=== PATIENT | female | born 1990 | race American Indian/Alaskan Native ===

== ENCOUNTER 2020-11-12 08:55 | Emergency (ER) | payer SELFPAY ==
[2020-11-12 09:21] VITALS: BP 100/63
[2020-11-12 10:11] LABS: Bilirubin,Urine NEG (Negative); Blood,Urine NEG (Negative); Color,Urine Yellow (Yellow); Mucus,Urine FEW /HPF; Protein,Urine <15 mg/dL mg/dL (Negative); RBC,Urine < 1.0 /HPF (0.0-6.0); Urobilinogen,Urine < 2.0 mg/dL (<2.0); WBC,Urine < 1.0 /HPF (0.0-6.0)
[2020-11-12 10:34] LABS: Eosinophils # (Auto) 0.1 K/mm3 (0.0-0.4); Eosinophils % (Auto) 1.1 % (0.0-4.3); Hematocrit 40.5 % (30.3-42.9); Hemoglobin 13.2 gm/dl (10.1-14.3); Lymphocytes # (Auto) 1.7 K/mm3 (1.2-5.4); Lymphocytes % (Auto) 32.9 % (13.4-35.0); Mean Corpuscular HGB Conc 33 % (30-34); Mean Corpuscular Volume 89 fl (79-97); Monocytes # (Auto) 0.3 K/mm3 (0.0-0.8); Monocytes % (Auto) 6.5 % (0.0-7.3); Platelet Count 257 K/mm3 (140-440); Red Blood Count 4.56 M/mm3 (3.65-5.03); Red Cell Distribution Width 15.4 % (13.2-15.2)
--- NOTE | 2020-11-12 10:55 | Emergency Department Report ---
ED HPI - General Chief complaint: Vaginal Bleeding Stated complaint: PREG 4WKS/BLEEDING/PAIN Time Seen by Provider: 11/12/20 10:50 Source: patient Mode of arrival: Ambulatory Limitations: No Limitations - History of Present Illness Initial comments: Patient is a 30-year-old female presents emergency room with complaints of lower abdominal cramping that began earlier this morning. She states that she did have an episode of heavy bleeding but has since significantly improved. She states that she is approximately 4 weeks . She states that her last menstrual cycle was 09/24/2020. She has not had this confirmed and states that she took a home test which was positive. She has not seen [facility]. She denies any fever, nausea, vomiting, diarrhea, urinary symptoms, abnormal vaginal discharge. No past medical history. Allergy to penicillin. /P: 2/A: 2 - Related Data Home Medications Medication Instructions Recorded Confirmed Last Taken Mv-Mn/Iron/FA/Herbal/Digestive 1 each PO QDAY 08/27/13 09/07/13 09/06/13 08:00 [ One Tablet] 1 Previous Rx's Medication Instructions Recorded Last Taken Type Prednisone [predniSONE 5 mg (6-Day 5 mg PO .TAPER #1 tab.ds.pk 08/13/15 Unknown Rx Pack, 21 Tabs)] hydrOXYzine HCL [Atarax] 10 mg PO Q6HR #30 tablet 08/13/15 Unknown Rx Allergies Allergy/AdvReac Type Severity Reaction Status Date / Time Penicillins Allergy Swelling Verified 11/12/20 09:17 ED Review of Systems ROS: Stated complaint: PREG 4WKS/BLEEDING/PAIN Other details as noted in HPI Comment: All other systems reviewed and negative ED Past Medical Hx - Past Medical History Previous Medical History?: No Hx Hypertension: No Hx Congestive Heart Failure: No Hx Diabetes: No Hx Deep Vein Thrombosis: No Hx Renal Disease: No Hx Sickle Cell Disease: No Hx Seizures: No Hx Asthma: No Hx COPD: No Hx HIV: No - Surgical History Past Surgical History?: No - Social History Smoking Status: Never Smoker Substance Use Type: None - Medications Home Medications: Home Medications Medication Instructions Recorded Confirmed Last Taken Type Mv-Mn/Iron/FA/Herbal/Digestive 1 each PO QDAY 08/27/13 09/07/13 09/06/13 08:00 History [ One Tablet] 1 Prednisone [predniSONE 5 mg (6-Day 5 mg PO .TAPER #1 tab.ds.pk 08/13/15 Unknown Rx Pack, 21 Tabs)] hydrOXYzine HCL [Atarax] 10 mg PO Q6HR #30 tablet 08/13/15 Unknown Rx ED Physical Exam - General Limitations: No Limitations General appearance: alert, in no apparent distress - Head Head exam: Present: atraumatic, normocephalic - Eye Eye exam: Present: normal appearance - ENT ENT exam: Present: mucous membranes moist - Respiratory Respiratory exam: Present: normal lung sounds bilaterally. Absent: respiratory distress, wheezes, rales, rhonchi, stridor, chest wall tenderness, accessory muscle use, decreased breath sounds, prolonged expiratory - Cardiovascular Cardiovascular Exam: Present: regular rate, normal rhythm, normal heart sounds. Absent: systolic murmur, diastolic murmur, rubs, gallop - GI/Abdominal GI/Abdominal exam: Present: soft, normal bowel sounds. Absent: distended, tenderness, guarding, rebound, rigid - Neurological Exam Neurological exam: Present: alert, oriented X3 - Psychiatric Psychiatric exam: Present: normal affect, normal mood - Skin Skin exam: Present: warm, dry, intact ED Course Vital Signs 11/12/20 09:21 Temperature 99.2 F Pulse Rate 74 Respiratory 18 Rate Blood Pressure 100/63 O2 Sat by Pulse 100 Oximetry ED Medical Decision Making - Lab Data Result diagrams: 11/12/20 09:38 Lab Results 11/12/20 11/12/20 11/12/20 Range/Units 09:38 09:38 09:38 WBC 5.3 (4.5-11.0) K/mm3 RBC 4.56 (3.65-5.03) M/mm3 Hgb 13.2 (10.1-14.3) gm/dl Hct 40.5 (30.3-42.9) % MCV 89 (79-97) fl MCH 29 (28-32) pg MCHC 33 (30-34) % RDW 15.4 H (13.2-15.2) % Plt Count 257 (140-440) K/mm3 Lymph % (Auto) 32.9 (13.4-35.0) % Gilchrist % (Auto) 6.5 (0.0-7.3) % Eos % (Auto) 1.1 (0.0-4.3) % Baso % (Auto) Carpet [employer]neyman Lymph # (Auto) 1.7 (1.2-5.4) K/mm3 Gilchrist # (Auto) 0.3 (0.0-0.8) K/mm3 Eos # (Auto) 0.1 (0.0-0.4) K/mm3 Baso # (Auto) 0.0 (0.0-0.1) K/mm3 Seg Neutrophils % 58.7 (40.0-70.0) % Seg Neutrophils # 3.1 (1.8-7.7) K/mm3 HCG, Quant 52493 H (0-4) mIU/mL Urine Color (Yellow) Urine Turbidity (Clear) Urine pH (5.0-7.0) Ur Specific [place] (1.003-1.030) Urine Protein (Negative) mg/dL Urine Glucose (UA) (Negative) mg/dL Urine Ketones (Negative) mg/dL Urine Blood (Negative) Urine Nitrite (Negative) Urine Bilirubin (Negative) Urine Urobilinogen (<2.0) mg/dL Ur Leukocyte Esterase (Negative) Urine WBC (Auto) (0.0-6.0) /HPF Urine RBC (Auto) (0.0-6.0) /HPF U Epithel Cells (Auto) (0-13.0) /HPF Urine Mucus /HPF Blood Type A POSITIVE 11/12/20 Range/Units Unknown WBC (4.5-11.0) K/mm3 RBC (3.65-5.03) M/mm3 Hgb (10.1-14.3) gm/dl Hct (30.3-42.9) % MCV (79-97) fl MCH (28-32) pg MCHC (30-34) % RDW (13.2-15.2) % Plt Count (140-440) K/mm3 Lymph % (Auto) (13.4-35.0) % Gilchrist % (Auto) (0.0-7.3) % Eos % (Auto) (0.0-4.3) % Baso % (Auto) Lymph # (Auto) (1.2-5.4) K/mm3 Gilchrist # (Auto) (0.0-0.8) K/mm3 Eos # (Auto) (0.0-0.4) K/mm3 Baso # (Auto) (0.0-0.1) K/mm3 Seg Neutrophils % (40.0-70.0) % Seg Neutrophils # (1.8-7.7) K/mm3 HCG, Quant (0-4) mIU/mL Urine Color Yellow (Yellow) Urine Turbidity Clear (Clear) Urine pH 6.0 (5.0-7.0) Ur Specific [place] 1.019 (1.003-1.030) Urine Protein <15 mg/dl (Negative) mg/dL Urine Glucose (UA) Neg (Negative) mg/dL Urine Ketones Neg (Negative) mg/dL Urine Blood Neg (Negative) Urine Nitrite Neg (Negative) Urine Bilirubin Neg (Negative) Urine Urobilinogen < 2.0 (<2.0) mg/dL Ur Leukocyte Esterase Neg (Negative) Urine WBC (Auto) < 1.0 (0.0-6.0) /HPF Urine RBC (Auto) < 1.0 (0.0-6.0) /HPF U Epithel Cells (Auto) 1.0 (0-13.0) /HPF Urine Mucus Few /HPF Blood Type - Radiology Data Radiology results: report reviewed Ordering Physician: CATALINA GLEASON Date of Service: 11/12/20 Procedure(s): US OB <= 14 weeks fetus Accession Number(s): [id number] cc: CATALINA GLEASON FIRSTTRIMESTER OBSTETRIC ULTRASOUND HISTORY: Cramping and bleeding during COMPARISON: None. TECHNIQUE: Routine transabdominal OB ultrasound performed. FINDINGS: Uterus: Mildly enlarged measuring 9.5 x 6.1 x 6.4 cm. 2 fibroids are identified. The largest fibroid in the right lateral wall is subserosal in location and measures 2.4 cm. Gestational Sac: Well-defined oval shape and intrauterine in location. Yolk Sac: Normal in appearance. Fetus/Embryo: [place]-rump length of 0.59 cm, corresponding to an estimated gestational age of 6 weeks 3 days. Embryonic/ anatomy is too small for evaluation. Embryonic/ cardiac activity: 111bpm Placenta: Too small for evaluation. Amniotic fluid volume: Subjectively appropriate for gestational age. Ovaries: The right ovary is normal in size and appearance with normal blood flow, measuring 2.7 x 1.7 x 2.6 cm. The left ovary is normal in size and appearance with normal blood flow, measuring 2.7 x 1.7 x 2.6 cm. Additional findings: Small subchorionic hemorrhage is identified anterior to the gestational sac measuring 6 x 7 mm. IMPRESSION Early live intrauterine . Small subchorionic hemorrhage. Mild uterine fibroid disease. Signer Name: Butch Hoff Jr, MD Signed: 11/12/2020 11:34 AM Workstation Name: [id number] Transcribed By: TTR Dictated By: BUTCH HOFF JR, MD Electronically Authenticated By: BUTCH HOFF JR, MD Signed Date/Time: 11/12/20 1134 DD/ 1132 TD/TT: Print Cancel - Medical Decision Making Patient is a 30-year-old female presents emergency room with complaints of lower abdominal cramping that began earlier this morning. She states that she did have an episode of heavy bleeding but has since significantly improved. She states that she is approximately 4 weeks . She states that her last m enstrual cycle was 09/24/2020. She has not had this confirmed and states that she took a home test which was positive. She has not seen [facility]. She denies any fever, nausea, vomiting, diarrhea, urinary symptoms, abnormal vaginal discharge. No past medical history. Allergy to penicillin. /P: 2/A: 2. Vitals are normal. No abdominal tenderness on exam, no guarding, no rebound, no rigidity, normal bowel sounds, [place] [id number], H&H is normal, patient is Rh+. UA is within normal limits. OB ultrasound: Early live intrauterine . Small subchorionic hemorrhage. Mild uterine fibroid disease. Discussed all results with patient and answer questions. Discussed threatened miscarriage and the importance of having a repeat quant in 2 days. Advised patient May take Tylenol as needed for any cramping. Increase your water intake. Practice pelvic rest. Do not do any heavy lifting. Follow-up with [facility]. You need to have a repeat hCG quant in 2 days. Return to emergency room for any new or worsening symptoms. Today 11/12/2020 [place] [id number]. Critical care attestation.: If time is entered above; I have spent that time in minutes in the direct care of this critically ill patient, excluding procedure time. ED Disposition Clinical Impression: Threatened miscarriage Subchorionic bleed Qualifiers: Fetus number: single or unspecified fetus Disposition: DC- TO HOME OR SELFCARE Is pt being admited?: No Does the pt Need Aspirin: No Condition: Stable Instructions: Threatened Miscarriage, Subchorionic Hematoma Additional Instructions: May take Tylenol as needed for any cramping. Increase your water intake. Practice pelvic rest. Do not do any heavy lifting. Follow-up with [facility]. You need to have a repeat hCG quant in 2 days. Return to emergency room for any new or worsening symptoms. Today 11/12/2020 [place] [id number]. [facility] COVID-19 info: [facility] Address: [address] [place] [address] [address], [place] [address] Referrals: MIGUEL CUELLAR MD [Staff Physician] - 2-3 Days Time of Disposition: 12:14 Print Language: NORWEGIAN
--- NOTE | 2020-11-12 11:39 | Ultrasound Report ---
FIRSTTRIMESTER OBSTETRIC ULTRASOUND HISTORY: Cramping and bleeding during COMPARISON: None. TECHNIQUE: Routine transabdominal OB ultrasound performed. FINDINGS: Uterus: Mildly enlarged measuring 9.5 x 6.1 x 6.4 cm. 2 fibroids are identified. The largest fibroi d in the right lateral wall is subserosal in location and measures 2.4 cm. Gestational Sac: Well-defined oval shape and intrauterine in location. Yolk Sac: Normal in appearance. Fetus/Embryo: [place]-rump length of 0.59 cm, corresponding to an estimated gestational age of 6 weeks 3 days. Embryonic/ anatomy is too small for evaluation. Embryonic/ cardiac activity: 111bpm Placenta: Too small for evaluation. Amniotic fluid volume: Subjectively appropriate for gestational age. Ovaries: The right ovary is normal in size and appearance with normal blood flow, measuring 2.7 x 1. 7 x 2.6 cm. The left ovary is normal in size and appearance with normal blood flow, measuring 2.7 x 1.7 x 2.6 cm. Additional findings: Small subchorionic hemorrhage is identified anterior to the gestational sac brandon uring 6 x 7 mm. IMPRESSION Early live intrauterine . Small subchorionic hemorrhage. Mild uterine fibroid disease. Signer Name: Butch Hoff Jr, MD Signed: 11/12/2020 11:34 AM Workstation Name: [id number]
== END 2020-11-12 12:33 | disposition home or self-care (01) ==
LOC: ED 08:55
DX: O20.0 Threatened abortion (principal); Z3A.01 Less than 8 weeks gestation of pregnancy
CPT/HCPCS: 36415; 76801; 81001; 84702; 85025; 86900; 86901; 99284

== ENCOUNTER 2021-06-15 02:42 | Inpatient (IN) | payer MEDICAID ==
--- NOTE | 2021-06-15 04:20 | Ultrasound Report ---
OBSTETRIC ULTRASOUND INDICATION: presentation COMPARISON: No prior relevant imaging studies are available for comparison. TECHNIQUE: Transabdominal imaging was performed. FINDINGS: Single viable intrauterine is identified. lie: Breech. Heart rate: 128 bpm. measurements are as follows: Biparietal diameter 8.5 cm, 34 weeks 1 day Head circumference 31.3 cm, 35 weeks 0 days Abdominal circumference 30.5 cm, 34 weeks 3 days Femur length 6.7 cm, 34 weeks 2 days Estimated weight at this time is 2422 g. Amniotic fluid index is 8.2 cm, within normal limits. There is a grade 1 fundal placenta. CONCLUSION: Single viable intrauterine currently in breech position with estimated weight a t this time of 2422 g. Amniotic fluid index is within normal limits. Signer Name: Renny Dolan MD Signed: 06/15/2021 4:16 AM Workstation Name: [id number]
[2021-06-15] MEDS ORDERED: LACTATED RINGERS 1,000 ML IV SCH ×3 (04:45→08:00)
[2021-06-15 06:05] LABS: Basophils % (Auto) 0.4 % (0.0-1.8); Eosinophils # (Auto) 0.1 K/mm3 (0.0-0.4); Eosinophils % (Auto) 1.1 % (0.0-4.3); Hematocrit 36.8 % (30.3-42.9); Lymphocytes # (Auto) 1.9 K/mm3 (1.2-5.4); Lymphocytes % (Auto) 24.6 % (13.4-35.0); Mean Corpuscular HGB Conc 33 % (30-34); Mean Corpuscular Volume 88 fl (79-97); Monocytes # (Auto) 0.7 K/mm3 (0.0-0.8); Monocytes % (Auto) 9.4 % (0.0-7.3); Platelet Count 277 K/mm3 (140-440); Red Blood Count 4.17 M/mm3 (3.65-5.03); Red Cell Distribution Width 14.5 % (13.2-15.2)
--- NOTE | 2021-06-15 07:10 | History and Physical Report ---
History of Present Illness Date of examination: 06/15/21 Date of admission: 06/15/2021 Chief complaint: LOF and Spotting History of present illness: 30 y/o at 37-6/7 weeks presents to OBT reporting LOF and spotting. CTX were irregular and not painful. Good FM. In OBT, ROM Plus was (+) and SVE= 1.5/50%/-2. OB US revealed fetus in breech position and EFW in the 3rd %-ile. She is admitted for primary delivery secondary to Term PROM in breech p resentation. Past History Past Medical History: no pertinent history Past Surgical History: no surgical history Family/Genetic History: none Social history: no significant social history - Obstetrical History Expected Date of Delivery: 06/30/21 Actual Gestation: 37 Week(s) 6 Day(s) : 4 Para: 2 Hx # Term Pregnancies: 2 Spontaneous Abortions: 1 Medications and Allergies Allergies Allergy/AdvReac Type Severity Reaction Status Date / Time Penicillins Allergy Swelling Verified 11/12/20 09:17 Home Medications Medication Instructions Recorded Confirmed Last Taken Type Mv-Mn/Iron/FA/Herbal/Digestive 1 each PO QDAY 08/27/13 09/07/13 09/06/13 08:00 History [ One Tablet] 1 Prednisone [predniSONE 5 mg (6-Day 5 mg PO .TAPER #1 tab.ds.pk 08/13/15 Unknown Rx Pack, 21 Tabs)] hydrOXYzine HCL [Atarax] 10 mg PO Q6HR #30 tablet 08/13/15 Unknown Rx Active Meds: Active Medications Lactated Ringer's (Lactated Ringers) 1,000 mls @ 125 mls/hr IV DIRECT JAY Review of Systems All systems: negative - Vital Signs Vital signs: Vital Signs Pulse BP 90 120/74 06/15/21 03:53 06/15/21 03:53 Temp Pulse Resp BP Pulse Ox 98.9 F 88 15 100/49 99 06/15/21 04:50 06/15/21 07:06 06/15/21 04:50 06/15/21 06:51 06/15/21 07:06 - Physical Exam Breasts: Positive: normal Cardiovascular: Regular rate Lungs: Positive: Normal air movement Abdomen: Positive: normal appearance Genitourinary (Female): Positive: normal external genitalia Vulva: both: normal Vagina: Positive: normal moisture Uterus: Positive: enlarged Adnexa: both: normal Anus/Rectum: Positive: normal perianal skin Extremities: Positive: normal Deep Tendon Reflex Grade: Normal +2 - Obstetrical FHR: category 1 Cervical Dilatation: 1.5 Cervical Effacement Percentage: 50 station: -2 Uterine Contraction Frequency (min): 7 Uterine Contraction Pattern: Irregular Results Result Diagrams: 06/15/21 05:40 Abnormal lab results 06/15/21 06/15/21 Range/Units 03:00 05:40 [place] % (Auto) 9.4 H (0.0-7.3) % Membranes Rupture Positive A (Negative) All other labs normal. Ultrasound: report reviewed (OB US Limited= SLIUP. Breech. EFW= 2422 g (3rd %- ile). CHRISTI= 8.2 cm.) Assessment and Plan - Patient Problems (1) 37 weeks gestation of Current Visit: Yes Status: Acute Plan to address problem: care is up-to-date per patient. Need records from [facility]. (2) Full-term PROM with onset of labor more than 24 hours after rupture Current Visit: Yes Status: Acute Plan to address problem: ROM Plus is (+). Not in labor, and ROM preceded the onset of labor. Hence, this is Term PROM. Plan is delivery. As fetus is breech, the route of delivery is primary c- section. (3) Breech Current Visit: Yes Status: Acute Plan to address problem: Fetus is in breech presentation per ultrasound today. Plan is primary . (4) growth restriction Current Visit: Yes Status: Acute Plan to address problem: EFW is in the 3rd %-ile. Etiology is unknown. NICU is aware.
[2021-06-15] MEDS ORDERED: LIDOCAINE (2%) 20 MG/1 ML VIAL 20 ML MDV INFILTRATI NR (07:12)
[2021-06-15] MEDS ORDERED: ACETAMINOPHEN 325 MG TAB PO PRN (07:12)
[2021-06-15] MEDS ORDERED: BUTORPHANOL 2 MG/1 ML INJ IV PRN (07:12)
[2021-06-15] MEDS ORDERED: fentaNYL 100 MCG/2 ML INJ IV PRN (07:12)
[2021-06-15] MEDS ORDERED: BICITRA ORAL LIQD 30ML PO NR (07:17)
[2021-06-15] MEDS ORDERED: METOCLOPRAMIDE 10 MG/2 ML INJ IV NR (07:17)
[2021-06-15] MEDS ORDERED: miSOPROStol 200 MCG TAB ONE (07:28)
--- NOTE | 2021-06-15 07:44 | Anesthesia Day of Surgery ---
Anesthesia Day of Surgery - Day of Surgery Patient Examined: Yes Patient H&P Reviewed: Yes Patient is NPO: Yes
--- NOTE | 2021-06-15 07:47 | Anesthesia Consultation ---
Anesthesia Consult and Med Hx Date of service: 06/15/21 - Airway Anesthetic Teeth Evaluation: Good ROM Head & Neck: Adequate Mental/Hyoid Distance: Adequate Mallampati Class: Class II Intubation Access Assessment: Probably Good - Pulmonary Exam CTA: No - Cardiac Exam Cardiac Exam: RRR - Pre-Operative Health Status ASA Pre-Surgery Classification: ASA2 Proposed Anesthetic Plan: Spinal - Pulmonary Hx Smoking: No Hx Asthma: No Hx Respiratory Symptoms: No COPD: No Hx Pneumonia: No Hx Sleep Apnea: No - Cardiovascular System Hx Hypertension: No - Central Nervous System Hx Seizures: No Hx Back Pain: No Hx Psychiatric Problems: No - Endocrine Hx Renal Disease: No Hx End Stage Renal Disease: No Hx Insulin Dependent Diabetes: No Hx Non-Insulin Dependent Diabetes: No Hx Hypothyroidism: No Hx Hyperthyroidism: No - Hematic Hx Anemia: No Hx Sickle Cell Disease: No - Other Systems Hx Alcohol Use: No Hx Substance Use: No Hx Obesity: Yes
[2021-06-15] MEDS ORDERED: METHYLERGONOVINE MALEATE 0.2 MG/ML VIAL IM PRN (08:00)
[2021-06-15] MEDS ORDERED: AZITHROMYCIN/NS 500 MG/250 ML 500 MG/250 ML BAG IV ONE (08:00)
[2021-06-15] MEDS ORDERED: ePHEDrine SULFATE 50 MG/1 ML INJ IV PRN (08:00)
[2021-06-15] MEDS ORDERED: OXYTOCIN DRIP 30 UNITS/500 ML BAG IV SCH ×2 (08:00)
[2021-06-15] MEDS ORDERED: ceFAZolin/Water 2 GM/20 ML 2 GM/20 ML SYRINGE IV NR (08:00)
[2021-06-15] MEDS ORDERED: CARBOPROST TROMETHAMINE 250 MCG/1 ML INJ IM PRN (08:00)
[2021-06-15] MEDS ORDERED: FAMOTIDINE 20 MG/2 ML INJ IV NR (08:00)
[2021-06-15] MEDS ORDERED: TERBUTALINE 1 MG/1 ML INJ SUB-Q PRN (08:00)
--- NOTE | 2021-06-15 08:42 | Event Note ---
Date: 06/15/21 Breech PROM NPO, metal bonding helper to OR informed content obtained Monica Poole MD
[2021-06-15] MEDS ORDERED: GENTAMICIN 430 MG in SODIUM CHLORIDE 0.9% 100 ML IV ONE (09:00)
[2021-06-15] MEDS ORDERED: PHENYLEPHRINE/NS 1,000 MCG/10 ML SYRINGE (OR USE) IV ONE (09:21)
[2021-06-15] MEDS ORDERED: ONDANSETRON 4 MG/2 ML INJ ONE (09:21)
[2021-06-15] MEDS ORDERED: WATER FOR IRRIG STERILE 1,500 ML BOTTLE IR ONE (09:30)
[2021-06-15] MEDS ORDERED: SODIUM CHLORIDE 0.9% IRR 1,500 ML BOTTLE IR ONE (09:30)
[2021-06-15] MEDS ORDERED: BUPIVACAINE/PF (0.25%) 2.5 MG/ML 30 ML VIAL INFILTRATI ONE ×2 (09:56)
[2021-06-15] MEDS ORDERED: dexAMETHasone 20 MG/5 ML VIAL ONE (09:56)
--- NOTE | 2021-06-15 10:41 | Procedure Note ---
OB Delivery Note - Delivery Date of Delivery: 06/15/21 Surgeon: PATTIE MARIE Estimated blood loss: 300cc - Section Preop diagnosis: breech Postop diagnosis: same section procedure: primary low transverse Disposition: PACU Complications: none Narrative: Preop diagnosis: IUP at 37.6 weeks, PROM in breech presentation Postop diagnosis: Same, delivered Procedure: Primary low transverse section via Pfannenstiel incision Surgeon: Dr. Patite Marie Anesthesia spinal Complications none EBL 300 ml IV fluids 1500ml crystalloid Urine output 15 mL, clear Drains Vail to gravity Findings: Viable male with weight 2480gms and 9/9, normal uterus tubes and ovaries bilaterally Procedure: Patient was consented in 2021 taken to the operating room where she received excellent spinal anesthesia. She was then placed in the dorsal supine position with a leftward tilt. The abdomen was prepped and draped in a sterile fashion, and a timeout was verified. Adequate anesthesia was confirmed prior to the skin incision. A Pfannenstiel skin incision was made with a scalpel taken down to the underlying structures and the fascia was incised in the midline. The incision was extended laterally with curved Ann scissors, the superior and inferior aspects of the fascial incisions were grasped with Shraddha clamps and the rectus muscles dissected sharply. The abdomen was entered bluntly in the midline carried down inferiorly with good visualization of the bladder. The vesicouterine peritoneum was tented with Wallisian forceps and incised in the midline with Metzenbaum scissors and the vesicouterine peritoneum taken down sharply. The uterine incision was then made sharply with a scalpel. The inferior and superior aspect of the uterine incisions were extended bluntly, the baby was delivered atraumatically in breech presentation. The remainder of the delivery was uncomplicated, no nuchal cord. The cord was clamped and cut and baby handed to waiting NICU team. An intact placenta with three-vessel cord delivered manually. The uterus was then cleared of all clots and debris and the uterus exteriorized. The uterine incision was closed in 2 layers of 0 vicryl with excellent hemostasis. The abdomen was then irrigated with warm normal saline and the uterus placed back into the abdomen atraumatically. A second look at the uterine incision assured hemostasis. The peritoneum was closed with 3-0 Vicryl, the rectus muscles approximated with 3-0 Vicryl, and the fascia closed with 0 Vicryl in the usual fashion. The subcuticular structures were closed with interrupted sutures of 3-0 Vicryl and the skin closed with 4-0 Monocryl. A pressure dressing was applied. All sponge needle and instrument counts were correct x2. There were no complications. Mom and baby stable to PACU. EBL 300 mL Monica Marie MD
[2021-06-15] MEDS ORDERED: WITCH HAZEL/ GLYCERIN PAD TP PRN (11:00)
[2021-06-15] MEDS ORDERED: LANOLIN/ZINC/DIMETHICONE (LANSINOH) 7 GM TP PRN (11:00)
[2021-06-15] MEDS ORDERED: NALOXONE 0.4 MG/1 ML INJ IV PRN (11:00)
[2021-06-15] MEDS ORDERED: PROMETHAZINE 25 MG RECT SUPP PR PRN (11:00)
[2021-06-15] MEDS ORDERED: SIMETHICONE 80 MG CHEW TAB PO PRN (11:00)
[2021-06-15] MEDS ORDERED: ONDANSETRON 4 MG/2 ML INJ IV PRN (11:00)
[2021-06-15] MEDS ORDERED: HYDROCORTISONE 25 MG RECTAL SUPP PR PRN (11:00)
[2021-06-15] MEDS ORDERED: KETOROLAC 30 MG/1 ML INJ IV PRN (11:00)
[2021-06-15] MEDS ORDERED: IBUPROFEN 600 MG TAB PO PRN (11:00)
[2021-06-15] MEDS ORDERED: MORPHINE 4 MG/1 ML INJ IV PRN (11:00)
[2021-06-15] MEDS: KETOROLAC 30 MG/1 ML INJ IV PRN (14:18)
[2021-06-15] MEDS: HYDROcodone/ACETAMINOPHEN 5-325 MG TAB PO PRN (17:16)
[2021-06-15] MEDS: MORPHINE 2 MG/1 ML INJ IV PRN (21:12)
--- NOTE | 2021-06-15 21:46 | Progress Note ---
Spinal Anesthesia Block - Spinal Anesthesia Block Start Time: :04 Stop Time: :08 Performed by:: MODESTO RANDOLPH Procedure: Patient IDed, H&P reviewed, all questions and concerns were answered, and consent was signed. Timeout was performed at bedside. Patient in sitting position. Sterile prep and drape was performed. [3] ml of 1% lidocaine skin wheal at L[3]- L [4]. Needle introducer advanced. 25 gauge spinal needle advanced. Clear, free flowing CSF. negative blood, negative paresthesia. Spinal dose given. All needles removed. Patient tolerated procedure.
--- NOTE | 2021-06-15 21:47 | Progress Note ---
Regional Anesthesia Block - Regional Anesthesia Block Start Time: 10:16 Stop Time: 10:20 Performed By:: MODESTO RANDOLPH Procedure: Patient consented for TAP block for post surgical pain management. Patient identified, monitors placed, and time out performed. TAP identified bilaterally via ultrasound. Skin prepped bilaterally with [chlorhexidine] and [22g stimuplex] needle advanced to the TAP. [Marcaine 0.25% 35ml] injected under ultrasound guidance on the [left] side. [Marcaine 0.25% 35ml] injected under ultrasound guidance on the [right] side. Negative aspiration every 5mL, No change in heart rate or rhythm. Patient tolerated the procedure well. No apparent complications seen.
--- NOTE | 2021-06-15 21:48 | Post Anesthesia Evaluation ---
- Post Anesthesia Evaluation Patient Participated: Yes Airway Patent: Yes Stable Respiratory Function: Yes Nausea/Vomiting: No Temp > 96.8F: Yes Pain Manageable: Yes Adequeate Hydration: Yes Anesthesia Complications: No Block Receding Appropriately: Yes Patient on Ventilator: No
[2021-06-15] MEDS ORDERED: MAGNESIUM HYDROXIDE (MOM) ORAL LIQD UDC PO PRN (22:00)
[2021-06-15] MEDS ORDERED: SENNOSIDES 8.6 MG TAB PO PRN (22:00)
[2021-06-16 00:40] LABS: Hematocrit 31.8 % (30.3-42.9); Hemoglobin 10.4 gm/dl (10.1-14.3)
[2021-06-16] MEDS: KETOROLAC 30 MG/1 ML INJ IV PRN ×2 (00:47→05:34)
[2021-06-16] MEDS: MORPHINE 2 MG/1 ML INJ IV PRN (04:34)
[2021-06-16] MEDS: oxyCODONE /ACETAMINOPHEN 5-325MG TAB PO PRN (08:17)
--- NOTE | 2021-06-16 08:44 | Progress Note ---
Assessment and Plan A: POD #1 Stable P: Follow Routine PostOp Orders Subjective - Subjective Date of service: 06/16/21 Patient reports: appetite normal, voiding normally, pain well controlled, flatus, ambulating normally : doing well, bottle feeding (and ) Objective - Vital Signs Latest vital signs: Vital Signs Temp Pulse Resp BP BP Pulse Ox Pulse Ox 06/16/21 08:20 98 06/16/21 06:03 18 06/16/21 05:34 18 06/16/21 05:04 18 06/16/21 05:00 98.0 F 78 20 114/56 98 06/16/21 04:34 18 06/16/21 01:17 18 06/16/21 00:47 18 06/16/21 00:45 98.6 F 88 20 103/53 97 06/15/21 21:42 18 06/15/21 21:12 18 06/15/21 21:00 99 06/15/21 20:45 98.0 F 89 20 118/53 100 06/15/21 15:50 97 F L 95 H 18 100/47 99 06/15/21 12:08 98.0 F 100 H 16 90/35 100 06/15/21 12:05 100 06/15/21 11:30 98.0 F 98 H 17 98/48 100 06/15/21 11:15 98.0 F 98 H 17 98/48 100 06/15/21 11:00 96 H 19 100/49 100 06/15/21 10:50 97 H 18 102/48 100 06/15/21 10:40 96 H 16 98/39 100 06/15/21 10:35 98 H 19 104/43 100 06/15/21 10:30 98.7 F 101 H 19 107/38 100 06/15/21 08:46 86 98 Intake and Output 06/15/21 06/16/21 06/16/21 22:59 06:59 14:59 Intake Total 120 240 Output Total 700 300 Balance -580 -60 Intake: Oral 120 240 Output: Urine 700 300 Indwelling Catheter 700 Void 300 Other: Total, Intake Amount 120 240 Total, Output Amount 200 300 # Voids Void 1 - Exam Breasts: Present: normal Cardiovascular: Present: Regular rate Lungs: Present: Clear to auscultation, Normal air movement Abdomen: Present: normal appearance, soft, normal bowel sounds Uterus: Present: normal, firm, fundal height below umbilicus Extremities: Present: normal Incision: Present: dry, dressed
[2021-06-16] MEDS: IBUPROFEN 800 MG TAB PO PRN ×2 (13:05→22:03)
[2021-06-17] MEDS: HYDROcodone/ACETAMINOPHEN 5-325 MG TAB PO PRN (00:26)
[2021-06-17] MEDS: oxyCODONE /ACETAMINOPHEN 5-325MG TAB PO PRN (04:09)
[2021-06-17] MEDS: IBUPROFEN 800 MG TAB PO PRN ×2 (10:09→17:00)
--- NOTE | 2021-06-17 12:15 | Progress Note ---
Assessment and Plan POD#2 C/Section doing well 1. Baby held by peds for further evaluation 2. Pt for discharge tomorrow if pt remains stable. Subjective Date of service: 06/17/21 Principal diagnosis: POD#2 C/S Interval history: Pt has no complaints. Vag bleed less than a period, pain controlled with meds, voiding without difficulty and has passed flatus. pt is breast feeding Objective - Constitutional Vitals: Vital Signs - 12hr 06/17/21 06/17/21 06/17/21 00:20 07:51 09:45 Temperature 97.9 F Pulse Rate 77 Respiratory 18 Rate Blood Pressure 108/70 O2 Sat by Pulse 100 Oximetry O2 Sat by Pulse 100 100 Oximetry [ Throughout] General appearance: Present: no acute distress - Neck Neck: normal ROM - Respiratory Respiratory effort: normal - Breasts Breasts: deferred - Cardiovascular Rhythm: regular Extremities: No edema - Gastrointestinal General gastrointestinal: Present: soft, non-tender, other (Incision with steristrips, dry but with old dark blood stain. No tenderness or drainage) - Genitourinary Female genitourinary: other (Lochia small; Uterine fundus firm, 2cm below umbilicus and non-tender) - Neurologic Neurologic: moves all extremities - Psychiatric Psychiatric: appropriate mood/affect - Labs CBC & Chem 7: 06/15/21 23:28 Medications & Allergies - Medications Allergies/Adverse Reactions: Allergies Penicillins Allergy (Verified 11/12/20 09:17) Swelling Home Medications: Home Medications Medication Instructions Recorded Confirmed Last Taken Type Mv-Mn/Iron/FA/Herbal/Digestive 1 each PO QDAY 08/27/13 09/07/13 09/06/13 08:00 History [ One Tablet] 1 Prednisone [predniSONE 5 mg (6-Day 5 mg PO .TAPER #1 tab.ds.pk 08/13/15 Unknown Rx Pack, 21 Tabs)] hydrOXYzine HCL [Atarax] 10 mg PO Q6HR #30 tablet 08/13/15 Unknown Rx Ibuprofen [Motrin] 600 mg PO Q8H PRN #60 tablet 06/17/21 Unknown Rx oxyCODONE /ACETAMINOPHEN [Percocet 1 tab PO Q6HR PRN #20 tablet 06/17/21 Unknown Rx 5/325] Active Medications: Generic Name Dose Route Start Last Admin Trade Name Freq PRN Reason Stop Dose Admin Hydrocodone Bitart/Acetaminophen 1 each 06/15/21 11:00 06/17/21 00:26 Hydrocodone/Acetaminophen 5-325 Mg Tab PO 1 each Q6H PRN Administration Pain, Moderate (4-6) Carboprost Tromethamine 250 mcg 06/15/21 08:00 Carboprost Tromethamine 250 Mcg/1 Ml Inj IM ONCE PRN Uterine Bleeding Ephedrine Sulfate 10 mg 06/15/21 08:00 Ephedrine Sulfate 50 Mg/1 Ml Inj IV Q2M PRN Hypotension Hydrocortisone Acetate 25 mg 06/15/21 11:00 Hydrocortisone 25 Mg Rectal Supp DE BID PRN Hemorrhoids Oxytocin/Sodium Chloride 30 units in 500 mls @ 2 mls/hr 06/15/21 08:00 Pitocin/Ns 30 Unit/500ml IV TITR REPLACED BY [facility] Protocol Lactated Ringer's 1,000 mls @ 125 mls/hr 06/15/21 08:00 Lactated Ringers IV DIRECT JAY Oxytocin/Sodium Chloride 30 units in 500 mls @ 40 mls/hr 06/15/21 08:00 Pitocin/Ns 30 Unit/500ml IV TITR REPLACED BY [facility] Protocol Ibuprofen 600 mg 06/15/21 11:00 Ibuprofen 600 Mg Tab PO Q6H PRN Pain, Mild (1-3) Ibuprofen 800 mg 06/15/21 11:00 06/17/21 10:09 Ibuprofen 800 Mg Tab PO 800 mg Q6H PRN Administration Pain, Moderate (4-6) Ketorolac Tromethamine 15 mg 06/15/21 11:00 Ketorolac 30 Mg/1 Ml Inj IV 06/20/21 10:59 Q6H PRN Pain, Mild (1-3) Ketorolac Tromethamine 30 mg 06/15/21 11:00 06/16/21 05:34 Ketorolac 30 Mg/1 Ml Inj IV 06/20/21 10:59 30 mg Q6H PRN Administration Pain, Moderate (4-6) Magnesium Hydroxide 30 ml 06/15/21 22:00 Magnesium Hydroxide (Mom) Oral Liqd Udc PO QHS PRN Constip Unrelieved By Senna Methylergonovine Maleate 0.2 mg 06/15/21 08:00 Methylergonovine Maleate 0.2 Mg/Ml Vial IM ONCE PRN Uterine Bleeding Morphine Sulfate 2 mg 06/15/21 11:00 06/16/21 04:34 Morphine 2 Mg/1 Ml Inj IV 2 mg Q4H PRN Administration Pain, Moderate (4-6) Morphine Sulfate 4 mg 06/15/21 11:00 Morphine 4 Mg/1 Ml Inj IV Q4H PRN Pain , Severe (7-10) Multi-Ingredient Ointment 1 applic 06/15/21 11:00 Lanolin/Zinc/Dimethicone (Lansinoh) 7 Gm TP PRN PRN dryness/cracking Naloxone HCl 0.1 mg 06/15/21 11:00 Naloxone 0.4 Mg/1 Ml Inj IV Q2MIN PRN Res Rate </= 8 or 02 SAT < 92% Ondansetron HCl 4 mg 06/15/21 11:00 Ondansetron 4 Mg/2 Ml Inj IV Q8H PRN Nausea And Vomiting Oxycodone/Acetaminophen 1 tab 06/15/21 11:00 06/17/21 04:09 Oxycodone /Acetaminophen 5-325mg Tab PO 1 tab Q6H PRN Administration Pain, Moderate (4-6) Promethazine HCl 25 mg 06/15/21 11:00 Promethazine 25 Mg Rect Supp DE Q6H PRN N/V IF NPO AND NO IV ACCESS Senna 17.2 mg 06/15/21 22:00 Sennosides 8.6 Mg Tab PO QHS PRN Constipation Simethicone 80 mg 06/15/21 11:00 Simethicone 80 Mg Chew Tab PO Q6H PRN Gas pain Sodium Chloride 10 ml 06/15/21 11:00 Sodium Chloride 0.9% 10 Ml Flush Syringe IV 06/27/21 10:59 PRN NR Terbutaline Sulfate 0.25 mg 06/15/21 08:00 Terbutaline 1 Mg/1 Ml Inj SUB-Q ONCE PRN Hyperstimulation/Hypertonicity Witch Jackie/Glycerin 1 each 06/15/21 11:00 Witch Jackie/ Glycerin Pad TP PRN PRN Hemorrhoids/cleansing/soothing
[2021-06-18] MEDS: oxyCODONE /ACETAMINOPHEN 5-325MG TAB PO PRN (01:47)
--- NOTE | 2021-06-18 11:26 | Progress Note ---
Assessment and Plan A: /postop day 3 S/P primary LTCS. Anemia. Baby in NICU (TOF). P: Discharge patient home today. Discussed with patient /postop discharge instructions and warning signs. Advised patient to avoid intercourse, lifting, housework, driving, stair climbing, tub baths (patient may take showers). Advised patient to continue taking her vitamin and iron supplements at home. Advised patient to follow up at [facility] in 1 week. Patient voiced understanding of all instructions. Subjective - Subjective Date of service: 06/18/21 Principal diagnosis: POD#3 C/S Interval history: Patient desires discharge today. Patient reports: appetite normal, voiding normally, pain well controlled, flatus, ambulating normally, no dizzy ambulation, no nauseated Ringle: in NICU (pt. states baby has TOF) Objective - Vital Signs Latest vital signs: Vital Signs Temp Pulse Resp BP Pulse Ox Pulse Ox 06/18/21 08:15 100 06/18/21 01:53 100 06/18/21 00:23 97.5 F L 78 18 96/55 100 06/17/21 16:53 98.0 F 74 18 110/70 100 Intake and Output 06/17/21 06/18/21 06/18/21 23:59 07:59 15:59 Intake Total 240 480 Balance 240 480 Intake: Oral 240 Intake, Free Water 480 Other: Total, Intake Amount 240 # Voids Void 1 1 - Exam Cardiovascular: Present: Regular rate, No murmurs Lungs: Present: Clear to auscultation Abdomen: Present: normal appearance, soft, normal bowel sounds. Absent: distention, tenderness, guarding, rigidity Uterus: Present: normal, firm, fundal height below umbilicus Extremities: Absent: tenderness, edema Incision: Present: intact
--- NOTE | 2021-06-18 11:32 | Discharge Summary ---
Providers - Providers Date of Admission: 06/15/21 09:58 Date of discharge: 06/18/21 Attending physician: PEMA PRIEOT MD Primary care physician: PEMA PRIETO MD Hospitalization Reason for admission: section Delivery: Procedure: primary low transverse Incision: dry, intact complications: none Discharge diagnosis: IUP at term delivered [place] baby: male Pertinent studies: Labs Hospital course: Stable hospital course Condition at discharge: Good Disposition: 01 HOME / SELF CARE / HOMELESS - Discharge Diagnoses (1) Term delivered Status: Acute (2) Anemia Status: Acute Plan - Discharge Medications Prescriptions: Ibuprofen [Motrin] 600 mg PO Q8H PRN #60 tablet PRN Reason: Pain oxyCODONE /ACETAMINOPHEN [Percocet 5/325] 1 tab PO Q6HR PRN #20 tablet PRN Reason: Pain - Provider Discharge Summary Activity: routine, no sex for 6 weeks, no heavy lifting 4 weeks, no strenuous exercise Diet: routine Instructions: routine Additional instructions: Continue taking your vitamin and iron supplements at home. Follow up at [facility] in 1 week. Call your doctor immediately for: * Fever > 100.5 * Heavy vaginal bleeding ( >1 pad per hour) * Severe persistent headache * Shortness of breath * Reddened, hot, painful area to leg or breast * Drainage or odor from incision. * Keep incision clean and dry at all times and follow doctor's instructions regarding bathing/showering - Follow up plan Follow up: ROGE PAZ CNM [Advanced Practice Nurse] - 7 Days Forms: [facility] Discharge Summary
[2021-06-18 19:30] VITALS: BP 115/76
== END 2021-06-18 12:44 | disposition home or self-care (01) | DRG 765 ==
LOC: TRG 02:42 → APU 03:14 → TRG 09:55 → APU 09:58 → OB 11:49
PROVIDERS: ADMIT Obstetrics & Gynecology Gynecology; ATTEND Obstetrics & Gynecology Gynecology
PROC: 10D00Z1 Extraction of Products of Conception, Low, Open Approach (ICD-10-PCS; principal; 2021-06-15)
DX: O32.1XX0 Maternal care for breech presentation, not applicable or unspecified (principal); O36.5930 Maternal care for other known or suspected poor fetal growth, third trimester, not applicable or unspecified; O42.12 Full-term premature rupture of membranes, onset of labor more than 24 hours following rupture; Z20.822 Contact with and (suspected) exposure to COVID-19; O99.214 Obesity complicating childbirth; O90.81 Anemia of the puerperium; Z37.0 Single live birth; Z3A.37 37 weeks gestation of pregnancy
CPT/HCPCS: 36415; 76816; 84112; 85014; 85018; 85025; 86850; 86900; 86901; 99211; G0378; J3490; J7121; G0463; J1100; J1885; J2270; J2370; J2405; J2765; U0003